=== PATIENT | male | born 1945 | race Caucasian/White ===

== ENCOUNTER 2022-07-09 08:29 | Emergency (ER) | payer MEDICARE, BC ==
[2022-07-09] MEDS ORDERED: Sodium Chloride 0.9% 10 ML Syringe FLUSH PRN (08:46)
[2022-07-09 08:47] VITALS: BP 164/99; PULSE 92
== END 2022-07-09 11:25 | disposition home or self-care (01) ==
LOC: JD.ED 08:29
DX: H65.01 Acute serous otitis media, right ear (principal); Z88.8 Allergy status to other drugs, medicaments and biological substances; Z79.899 Other long term (current) drug therapy
CPT/HCPCS: 36415; 70450; 72125; 80053; 82947; 85025; 93005; 99284; J3490